=== PATIENT | female | born 1955 | race Caucasian/White ===

== ENCOUNTER 2024-05-25 22:23 | Emergency (ER) | payer MEDICARE, BC ==
[~2024-05-25] VITALS: Ht 162.6 cm; Wt 72.6 kg
[2024-05-25] MEDS ORDERED: CEFTRIAXONE 1 G VIAL IM ONE (23:15)
[2024-05-25] MEDS ORDERED: LIDOCAINE 1%-EPI 1:100,000 20 ML VIAL IJ ONE (23:15)
[2024-05-25] MEDS ORDERED: SODIUM BICARBONATE 4.2 % (NEUT) 5 ML VIAL TP ONE (23:15)
[2024-05-25] MEDS ORDERED: LIDOCAINE HCL 1% 20 ML VIAL ONE (23:26)
[2024-05-25] MEDS ORDERED: LIDOCAINE 1%-EPI 1:100,000 20 ML VIAL ONE ×2 (23:31→23:49)
[2024-05-25] MEDS ORDERED: SODIUM BICARBONATE 4.2 % (NEUT) 5 ML VIAL ONE (23:35)
[2024-05-26] MEDS ORDERED: ONDA4TAB11 PO (00:16)
[2024-05-26] MEDS ORDERED: HYDR-3980 PO (00:16)
[2024-05-26] MEDS ORDERED: CEPH500T PO (00:16)
[2024-05-26 01:33] VITALS: BP 129/72; TEMP 98.1; O2SAT 97
== END 2024-05-26 01:34 | disposition home or self-care (01) ==
LOC: ER 22:50
DX: S81.011A Laceration without foreign body, right knee, initial encounter (principal); Z98.890 Other specified postprocedural states; W01.0XXA Fall on same level from slipping, tripping and stumbling without subsequent striking against object, initial encounter; Y93.89 Activity, other specified; Y92.89 Other specified places as the place of occurrence of the external cause; Y99.8 Other external cause status
CPT/HCPCS: 12005; 73560; 99283; J3490; A4606; A4663

== ENCOUNTER 2024-05-28 09:52 | Emergency (ER) | payer MEDICARE, BC ==
[~2024-05-28] VITALS: Ht 162.6 cm; Wt 72.6 kg
[~2024-05-28 09:52] MED LIST: CEPH500T PO; HYDR-3980 PO; ONDA4TAB11 PO
[2024-05-28 10:41] VITALS: BP 112/71; TEMP 97; O2SAT 96
== END 2024-05-28 10:42 | disposition home or self-care (01) ==
LOC: ER 09:52
DX: S81.011D Laceration without foreign body, right knee, subsequent encounter (principal); Z48.00 Encounter for change or removal of nonsurgical wound dressing; Z96.651 Presence of right artificial knee joint; Z88.7 Allergy status to serum and vaccine; X58.XXXD Exposure to other specified factors, subsequent encounter